=== PATIENT | male | born 1965 | race Caucasian/White ===

== ENCOUNTER 2021-02-07 19:43 | Inpatient (IN) | payer MEDICARE, OTHER ==
[~2021-02-07] VITALS: Ht 172.7 cm; Wt 101.6 kg
[~2021-02-07 19:43] MED LIST: ASPIRIN EC81 MG PO; CLARITIN10 MG PO; COREG 3.125M3.125 MG PO; KLONOPIN0.5 MG PO; LEVAQUIN500 MG PO; LORTAB 10-3251 EACH PO; NEURONTIN600 MG PO; OMEPRAZOLE20 MG PO; RYTHMOL SR 325325 MG PO; TRAMADOL HCL50 MG PO
[2021-02-08] MEDS ORDERED: LOPRESSOR 25 MG25 MG PO (19:11)
[2021-02-08] MEDS ORDERED: PROTONIX20 MG PO (19:12)
[2021-02-08] MEDS ORDERED: MIRALAX17 GM PO (19:12)
[2021-02-08] MEDS ORDERED: HYDROCODON-ACE1 EAC6 PO (19:12)
[2021-02-08] MEDS ORDERED: LIPITOR40 MG PO (19:13)
[2021-02-09 02:20] LABS: HEMOGLOBIN 12.5 gm/dl (14.0-17.5); RED BLOOD COUNT 4.02 M/UL (4.20-5.50)
[2021-02-09 02:41] LABS: BUN/CREATININE RATIO 13 (0-10)
[2021-02-10 08:58] LABS: HEMOGLOBIN 13.2 gm/dl (14.0-17.5); RED BLOOD COUNT 4.37 M/UL (4.20-5.50); WHITE BLOOD COUNT 8.9 K/UL (4.5-11.0)
[2021-02-10 09:36] LABS: BUN/CREATININE RATIO 12 (0-10)
[2021-02-11 07:49] LABS: HEMOGLOBIN 12.5 gm/dl (14.0-17.5); RED BLOOD COUNT 4.03 M/UL (4.20-5.50); WHITE BLOOD COUNT 7.5 K/UL (4.5-11.0)
[2021-02-11 08:22] LABS: BUN/CREATININE RATIO 18 (0-10)
[2021-02-11] MEDS ORDERED: LEVOFLOXACIN500 MG PO (13:22)
[2021-02-11] MEDS ORDERED: CLINDAMYCIN HC300 MG PO (13:22)
--- NOTE | 2021-02-11 18:40 | NUR ---
[id number] Patient returned to room from Pharmacist Apprentice. Pressure dressing intact to left upper chest. Awake, alert, denies pain/discomfort. V/S stable. at bedside. Call light in reach.
== END 2021-02-11 18:57 | disposition home or self-care (01) | DRG 259 ==
LOC: M/S 19:43
PROVIDERS: Internal Medicine; Physician Assistant; ADMIT Internal Medicine
PROC: 0JH606Z Insertion of Pacemaker, Dual Chamber into Chest Subcutaneous Tissue and Fascia, Open Approach (ICD-10-PCS; principal; 2021-02-11)
PROC: 0JPT0PZ Removal of Cardiac Rhythm Related Device from Trunk Subcutaneous Tissue and Fascia, Open Approach (ICD-10-PCS; principal; 2021-02-11)
DX: I44.2 Atrioventricular block, complete (principal); I49.5 Sick sinus syndrome; F41.9 Anxiety disorder, unspecified; E78.5 Hyperlipidemia, unspecified; K21.9 Gastro-esophageal reflux disease without esophagitis; G60.0 Hereditary motor and sensory neuropathy; M54.9 Dorsalgia, unspecified; G89.29 Other chronic pain; F17.210 Nicotine dependence, cigarettes, uncomplicated; Z95.0 Presence of cardiac pacemaker; Z90.89 Acquired absence of other organs; Z79.82 Long term (current) use of aspirin; Z79.899 Other long term (current) drug therapy; Z83.3 Family history of diabetes mellitus; Z98.890 Other specified postprocedural states
CPT/HCPCS: ECHO; 33213; 36415; 71046; 80048; 80053; 82550; 82553; 83735; 84439; 84443; 84484; 85025; 93005; 93306; 94640; 94664; 94760; 99152; 99153; C1785; J1200; J1650; J2250; J3010; J3370; J7030; J7040; J7050; U0002